=== PATIENT | male | born 1985 | race Caucasian/White ===

== ENCOUNTER 2019-03-22 13:12 | Inpatient (IN) ==
[2019-03-22] MEDS ORDERED: Naloxone 0.4 MG/ML INJ IVP PRN (17:23)
[2019-03-22] MEDS ORDERED: Mag Hydrox/Al Hydrox/Simeth 30 ML UDC PO PRN (17:23)
[2019-03-22 17:44] LABS: Hematocrit 26.5 % (37.5-50.1); Hemoglobin 8.6 g/dL (12.9-16.9)
[2019-03-22] MEDS ORDERED: Dextrose Gel 15 GM/37.5 ML TUBE PO PRN ×2 (17:45)
[2019-03-22] MEDS ORDERED: *HR* Dextrose 50 % in Water (Syg) 50 ML SYRINGE IVP PRN (17:45)
[2019-03-22] MEDS ORDERED: D5% in Water 1,000 ML IVC PRN (17:45)
--- NOTE | 2019-03-22 18:11 | Internal Med History&Physical ---
Date of Encounter: 03/22/19 Time of Encounter: 17:15 Internal Medicine - H&P: HPI Chief complaint: Rectal bleeding Admitted From: Hospital to Hospital Transfer Plans for Post Hospital Care: Home History of present illness: Mr. Hernandez is a 33 year old male with chronic tachycardia presented to ED with complaints of bloody stool. He was evaluated and transferred here for further care. Mr Hernandez started having diarrhea yesterday and is now passing blood in his stool. No fever or chills. No abdominal pain. Has had multiple (over 10) bowel movements though feels it has slowed down at this time. No prior history. No recent travel or eating out. No one else ill. In ED he was found to be anemic (hemoglobin down about 5 grams from 09/10) and tachycardic and was transferred here for further GI eval. At this time he feels OK. He noted diaphoresis and dizziness with episodes but none now. He has hx of chronic tachycardia and states he has had a full work up negative. He takes Lopressor BID which helps. Mother is at bedside and agrees with his history. He also is having a foul odor under his arms with associated rash. This has been present for weeks. Past Med Surg Social Fam HX - Past Medical History Source: patient, obtained from family Medical history: migraine, other Additional medical history: FREQUENT HEARTBURN. sleep apnea - recently had sleep study and fitted for mask. asbergers. Psychiatric history: anxiety, ADHD, depression, other - Past Surgical History Surgical History: tonsillectomy Additional surgical history: left leg fx. - Social History Smoking Status: Current every day smoker Packs per day: <1 Smokeless Tobacco Status: No Alcohol use: occasionally Drug use: marijuana - Family History Mother Hx Family Endocrine Disorder: Yes (dm) Internal Medicine - H&P: Meds clonazePAM [Klonopin] 1 mg PO DAILY 01/16/18 [History] Clomipramine HCl 300 mg PO HS 09/01/18 [History] Gabapentin [Neurontin] 100 mg PO TID 09/01/18 [History] Metoprolol [Lopressor] 100 mg PO BID 09/01/18 [History] Venlafaxine XR (24 HR) [Effexor XR] 37.5 mg PO DAILY 09/01/18 [History] buPROPion HCl [Bupropion HCl Sr] 200 mg PO Q12H 09/01/18 [History] risperiDONE [Risperdal] 2 mg PO HS 09/01/18 [History] risperiDONE [Risperidone] 0.5 mg PO QAM 09/01/18 [History] Allergy/AdvReac Type Severity Reaction Status Date / Time Penicillins [PCN] Allergy Rash Verified 08/19/18 13:02 All Systems PM: A 10-system review of systems was performed and is negative for pertinent findings except as documented above in the HPI. - Constitutional Constitutional: as per HPI, no lethargy, no malaise - EENT Eyes: no dry eye, no loss of vision Ears: no decreased hearing Nose, mouth and throat: no mouth pain, no sinus pain - Cardiovascular Cardiovascular ROS IM: diaphoresis, lightheadedness, no chest pain, no dyspnea, no dyspnea on exertion, no palpitations - Respiratory Respiratory: dyspnea, snoring, other (Recent AMITA diagnosis and needs bipap per note) - Gastrointestinal Gastrointestinal: change in stool character, diarrhea, hematochezia, no abdominal pain, no tenesmus, no vomiting - Genitourinary Genitourinary ROS male: no difficulty urinating, no dysuria, no nocturia - Musculoskeletal Musculoskeletal ROS IM: no arthralgias, no muscle weakness - Integumentary Integumentary IM: erythema, rash - Neurological Neurological ROS: dizziness, no abnormal hearing, no numbness, no weakness - Psychiatric Psychiatric: confusion, no visual hallucinations - Endocrine Endocrine IM: no excessive sweating - Hematologic/Lymphatic Hematologic/Lymphatic: no easy bleeding - Allergic/Immunologic Allergic/Immunologic: no seasonal rhinorrhea - Constitutional Vitals: Temp Pulse Resp BP Pulse Ox 98.2 F 136 19 125/82 99 03/22/19 15:55 03/22/19 16:32 03/22/19 15:55 03/22/19 15:55 03/22/19 16:29 General appearance: Present: A&O X 2, answers questions appropriately Exam: See below - Head Head exam: Present: atraumatic, normocephalic - Eye Eye exam: Present: EOMI, conjuntiva pink - ENT ENT exam: Present: mucous membranes dry, normal exam - Neck Neck exam general surgery: Present: normal inspection, supple - Respiratory Respiratory exam: Present: CTAB. Absent: rales, rhonchi, wheezes - Cardiovascular Cardiovascular exam: Present: tachycardia (Regular.). Absent: systolic murmur - GI/Abdominal GI/Abdominal exam: Present: normal bowel sounds, soft. Absent: mass, tenderness - Extremities Exam Extremities exam: Present: warm. Absent: tenderness - Neurological Exam Neurological exam: Present: alert, no focal deficits - Skin Skin exam: Present: rash (Yeast like rash axilla bilaterally), warm Internal Med - H&P Results - Labs CBC & Chem 7: 03/22/19 17:20 Labs: Short CBC 03/22/19 Range/Units 17:20 Hgb 8.6 L (12.9-16.9) g/dL Hct 26.5 L (37.5-50.1) % - Assessment and Plan (1) Hematochezia Current Visit: Yes Status: Acute Assessment and plan: Pt presented to ED with complaints of red rectal bleeding associated with diarrhea. Has leukocytosis. No abdominal pain. No fever or chills. Will check blood cx. Seems to be improving. GI panel ordered. Cipro/Flagyl started due to colitis on CT GI consult Currently NPO but ice chips and meds. (2) Anemia Current Visit: Yes Status: Acute Assessment and plan: Pt with acute lower GI bleed - H/H significantly decreased from baseline. q 6h H/H ordered - transfusion held unless under 8 or recurrent bleeding Qualifiers: Anemia type: other cause Other causes of anemia: acute posthemorrhagic Qu alified Code(s): D62 - Acute posthemorrhagic anemia (3) Diabetes Current Visit: Yes Status: Suspected Assessment and plan: Pt has elevated glucose on labs and yeast type rash under arms. Takes multiple psych meds increasing his risk (as well as family history) SSI coverage at this time. A1C ordered. Qualifiers: Diabetes mellitus type: type 2 Diabetes mellitus longterm insulin use: without watermaster use Diabetes mellitus complication status: with hyperglycemia Qualified Code(s): E11.65 - Type 2 diabetes mellitus with hyperglycemia (4) Morbid obesity with BMI of 40.0-44.9, adult Current Visit: Yes Status: Chronic Assessment and plan: Chronic issue (5) Acute renal failure Current Visit: Yes Status: Suspected Assessment and plan: Slight increase in creatinine most likely due prerenal status from bleeding. Recheck in AM. Qualifiers: Acute renal failure type: with acute tubular necrosis Qualified Code(s): N17.0 - Acute kidney failure with tubular necrosis (6) Depression Current Visit: Yes Status: Chronic Assessment and plan: Continue home meds. Qualifiers: Depression Type: unspecified Qualified Code(s): F32.9 - Major depressive disorder, single episode, unspecified (7) Yeast dermatitis Current Visit: Yes Status: Acute Assessment and plan: Add topical cream (8) AMITA (obstructive sleep apnea) Current Visit: Yes Status: Chronic Assessment and plan: Bipap ordered as per recent note. (9) Acute hemorrhagic colitis Current Visit: No Status: Acute Assessment and plan: Has leukocytosis. Check blood cx and start abx coverage. - Time Spent With Patient Total time spent is greater than 50% in coordination of care (as documented) at patient's floor/unit and/or counseling patient:
[2019-03-22] MEDS: Acetaminophen 325 MG TABLET PO PRN (19:38)
[2019-03-22] MEDS: Ringers Solution, Lactated 1,000 ML IVC SCH (19:38)
[2019-03-22] MEDS: Insulin LISPRO 300 UNITS/3 ML VIAL SQ SCH ×2 (19:51→23:32)
[2019-03-22] MEDS: Nystatin Cream 15 GM TUBE TP SCH (20:33)
[2019-03-22] MEDS ORDERED: *HR* Metoprolol 5 MG/5 ML VIAL IVP ONE (21:10)
[2019-03-23] MEDS: MetroNIDAZOLE 500 MG/100 ML 500 MG/100 ML BAG IVPB SCH ×3 (00:38→17:07)
[2019-03-23 02:12] LABS: Basophils % 0.2 %; Eosinophils % 0.1 %; Hematocrit 23.8 % (37.5-50.1); Hemoglobin 7.8 g/dL (12.9-16.9); Immature Granulocytes % 0.8 % (0-4); Lymphocytes # 3.3 K/mcL (0.6-4.6); Lymphocytes % 18.4 %; Mean Corpuscular HGB Conc 32.8 g/dL (31.6-35.5); Mean Corpuscular Hemoglobin 30.2 pg (28.0-33.3); Mean Corpuscular Volume 92.2 fL (83.0-100.0); Monocytes # 1.5 K/mcL (0.0-1.3); Monocytes % 8.4 %; Neutrophils # 12.8 K/mcL (1.6-8.9); Platelet Count 287 K/mcL (140-400); Red Blood Count 2.58 M/mcL (4.19-5.50); Red Cell Distribution Width 14.5 % (11.5-14.5); Segmented Neutrophils % 72.1 %; White Blood Count 17.8 K/mcL (4.3-11.1)
[2019-03-23 02:28] LABS: BUN/Creatinine Ratio 26 (6-26); Blood Urea Nitrogen 26 mg/dL (6-20); Calcium 7.6 mg/dL (8.6-10.3); Carbon Dioxide 19 mEq/L (23-29); Chloride 110 mEq/L (98-107); Glucose 127 mg/dL (70-105); Osmolality,Calculated 288 (280-300); Potassium 4.1 mEq/L (3.5-5.1); Sodium 136 mEq/L (136-145); eGFR For African Americans > 60 (> 60); eGFR For Non-African Americans > 60 (> 60)
[2019-03-23] MEDS ORDERED: 0.9 % Sodium Chloride 250 ML ONE (05:27)
[2019-03-23] MEDS: Insulin LISPRO 300 UNITS/3 ML VIAL SQ SCH ×3 (05:50→17:16)
[2019-03-23 06:44] LABS: Estimated Average Glucose 117 mg/dl
--- NOTE | 2019-03-23 07:28 | Internal Med Progress Note ---
<Rolo Colunga F - Last Filed: 03/23/19 15:24> Hospitalist Progress Note - Encounter Date of Encounter: 03/23/19 Time of Encounter: 07:28 - Subjective Interval History: Patient was seen and examined at bedside. This morning patient had a hemoglobin of 7.8 and was transfused 1 unit of packed red blood cells. We will recheck ca lcium. Patient endorsed 1 stool yesterday which appeared to have some blood in it. Endorses some dull lower abdominal pain. Patient's sister was in the room and said that the patient has been more confused for the last 2 days. He is typically AAOx4 however today he is AAOx2-3 oriented to person, place, recent events. Patient himself endorses feeling more confused than usual. Denies any chest pain, shortness of breath, palpitations, nausea, vomiting, fevers, chills. Denies dysuria or polyuria. - Exam Vitals: Temp Pulse Resp BP Pulse Ox 98.9 F 125 16 124/82 97 03/23/19 06:37 03/23/19 06:37 03/23/19 06:37 03/23/19 06:37 03/23/19 06:22 Exam: GEN: Well-appearing, NAD, conversant. HEAD: Normocephalic, atraumatic. EYES: PERRL, EOMI, anicteric. ENT: MMM. oropharynx without erythema or drainage. NECK: Supple. No LAD. No stiffness or restricted ROM. No tracheal deviation. HEART: Regular rate and regular rhythm, normal S1/S2, no m/r/g. LUNGS: CTAB, good air exchange bilaterally. No wheezing, rubs, or rhonchi. ABDO: Soft, mildly tender in the lower quadrant inferior to umbilicus nondistended with active bowel sounds. No rebound, guarding, rigidity. : No suprapubic tenderness or CVA tenderness. BACK: No obvious stepoffs or deformities. EXT: Without cyanosis, clubbing or edema. SKIN: Warm and dry without any rash. NEURO: Grossly nonfocal. Alert and oriented, moving all 4 extremities. CN not formally tested but appear grossly intact. PSYCH: normal affect, no depressed or anxious mood. - Assessment and Plan (1) Hematochezia Current Visit: Yes Status: Acute Assessment and Plan: Presented with bright red rectal bleeding associated with diarrhea. Had leukocytosis, colitis. Plan: - Transfused 1 unit PRBcs today since Hgb 7.8 this morning; repeat was 8.8 - F/u evening CBC, 4am CBC - Pending blood cultures - Continue Cipro/flagyl due to colitis on CT (started 03/22) - Started protonix 40mg IV, Tums PRN for heartburn - GI recs: colonoscopy tomorrow, clear liquid diet, Nulytely (2 tap water enemas if not clear by 6am) - NPO at midnight (2) Acute hemorrhagic colitis Current Visit: No Status: Acute Assessment and Plan: Patient with bright red rectal bleeding and leukocytosis. - Trending CBCs - Pending blood cultures - On cipro/flagyl (3) Anemia Current Visit: Yes Status: Acute Assessment and Plan: Patient has acute GI bleed, anemia likely due to blood loss. - Trending CBC to track Hgb - Tranfuse if Hgb <8 or with recurrent bleeding (4) Diabetes Current Visit: Yes Status: Suspected Assessment and Plan: Patient presented with an elevated blood glucose and yeast type rash under arms. Taking multiple psych meds increased risk of hyperglycemia as well as family history of diabetes. Hgb A1C was 5.7 Plan: - SSI coverage (5) Morbid obesity with BMI of 40.0-44.9, adult Current Visit: Yes Status: Chronic (6) Acute renal failure Current Visit: Yes Status: Suspected Assessment and Plan: Patient presented with slight increased creatinine most likely due to prerenal etiology from bleeding. Plan: - Trend with BMPs - BUN 26 and improving today, Cr 1 normal (7) Depression Current Visit: Yes Status: Chronic Assessment and Plan: Chronic issue. - Continue home medications. (8) Yeast dermatitis Current Visit: Yes Status: Acute Assessment and Plan: Patient noted to have a rash underneath his arms. Plan: - Given nystatin cream (9) Tachycardia Current Visit: Yes Status: Acute Assessment and Plan: Pt has been persistently tachycardic to the 120s to 130s. Has been seen by cardiology. Chart chart review revealed abnormal urine metanephrines and catecholamines, however low suspicion for pheochromocytoma. Cardiology suspects tachycardia due to combination of psych medications. - Patient is currently hemodynamically stable. - We will provide outpatient endocrinology follow-up for further evaluation. (10) AMITA (obstructive sleep apnea) Current Visit: Yes Status: Chronic Assessment and Plan: BiPAP ordered as needed. DVT Prophylaxis: SCDs - Time Spent with Patient Total time spent is greater than 50% in coordination of care (as documented) at patient's floor/unit and/or counseling patient: less than 15 minutes Plan of Care Discussed with: patient Internal Medicine: Result - Labs CBC & Chem 7: 03/23/19 12:04 03/23/19 01:56 Labs: Short CBC 03/22/19 03/23/19 Range/Units 17:20 01:56 WBC 17.8 H (4.3-11.1) K/mcL Hgb 8.6 L 7.8 L (12.9-16.9) g/dL Hct 26.5 L 23.8 L (37.5-50.1) % Plt Count 287 (140-400) K/mcL Neutrophils # 12.8 H (1.6-8.9) K/mcL BMP 03/23/19 01:56 Sodium 136 Potassium 4.1 Chloride 110 H Carbon Dioxide 19 L BUN 26 H Creatinine 1.00 Glucose 127 H Calcium 7.6 L Consult Discharge Plan - Plan Referrals: Tavo Cassidy, WEATHERIZATION ADMINISTRATOR [Primary Care Provider] - 04/07/19 9:00 am <Matt Contreras - Last Filed: 03/23/19 15:45> Hospitalist Progress Note - Encounter Date of Encounter: 03/23/19 - Exam Vitals: Temp Pulse Resp BP Pulse Ox 98.4 F 126 18 119/69 99 03/23/19 11:37 03/23/19 13:05 03/23/19 13:05 03/23/19 11:37 03/23/19 13:05 - Assessment and Plan (1) Hematochezia Current Visit: Yes Status: Acute (2) Anemia Current Visit: Yes Status: Acute (3) Diabetes Current Visit: Yes Status: Suspected (4) Morbid obesity with BMI of 40.0-44.9, adult Current Visit: Yes Status: Chronic (5) Acute renal failure Current Visit: Yes Status: Suspected (6) Depression Current Visit: Yes Status: Chronic (7) Yeast dermatitis Current Visit: Yes Status: Acute (8) AMITA (obstructive sleep apnea) Current Visit: Yes Status: Chronic (9) Acute hemorrhagic colitis Current Visit: No Status: Acute - Time Spent with Patient Total time spent is greater than 50% in coordination of care (as documented) at patient's floor/unit and/or counseling patient: Internal Medicine: Result - Labs CBC & Chem 7: 03/23/19 12:04 03/23/19 01:56 Labs: Short CBC 03/22/19 03/23/19 03/23/19 Range/Units 17:20 01:56 12:04 WBC 17.8 H (4.3-11.1) K/mcL Hgb 8.6 L 7.8 L 8.8 L (12.9-16.9) g/dL Hct 26.5 L 23.8 L 26.5 L (37.5-50.1) % Plt Count 287 (140-400) K/mcL Neutrophils # 12.8 H (1.6-8.9) K/mcL BMP 03/23/19 01:56 Sodium 136 Potassium 4.1 Chloride 110 H Carbon Dioxide 19 L BUN 26 H Creatinine 1.00 Glucose 127 H Calcium 7.6 L - Attending Attestation I examined this patient and my medical decision-making was reviewed with the Resident Physician on 03/23/19. I agree with the documented findings, disposition and treatment plan as described except to the extent set forth below. Mr Hernandez is currently admitted for acute LGI bleed and anemia. He remains moderate to high risk due to potential for worsening clinical status. Mr Hernandez is doing OK. He is still tachycardic. Seems to have less bleeding today he said. To have endoscopy tomorrow. Exam: Alert. NC. Mucus membranes dry. Neck supple. Heart tachy and regular. Lungs negative. Abd soft and nontender. No edema. Moves all extremities. Pulses palpable. Rash unchanged under arms. Plan: Continue cipro, flagyl. Endoscopy tomorrow. Transfuse today. Monitor H/H. <Rolo Colunga F - Last Filed: 03/23/19 15:24> (3) Anemia Qualifiers: Anemia type: other cause Other causes of anemia: acute posthemorrhagic Quali fied Code(s): D62 - Acute posthemorrhagic anemia (4) Diabetes Qualifiers: Diabetes mellitus type: type 2 Diabetes mellitus lobsterman insulin use: without lobsterman use Diabetes mellitus complication status: with hyperglycemia Qualified Code(s): E11.65 - Type 2 diabetes mellitus with hyperglycemia (6) Acute renal failure Qualifiers: Acute renal failure type: with acute tubular necrosis Qualified Code(s): N17.0 - Acute kidney failure with tubular necrosis (7) Depression Qualifiers: Depression Type: unspecified Qualified Code(s): F32.9 - Major depressive disorder, single episode, unspecified <Matt Contreras A - Last Filed: 03/23/19 15:45> (2) Anemia Qualifiers: Anemia type: other cause Other causes of anemia: acute posthemorrhagic Qualified Code(s): D62 - Acute posthemorrhagic anemia (3) Diabetes Qualifiers: Diabetes mellitus type: type 2 Diabetes mellitus senior care insulin use: without lobsterman use Diabetes mellitus complication status: with hyperglycemia Qualified Code(s): E11.65 - Type 2 diabetes mellitus with hyperglycemia (5) Acute renal failure Qualifiers: Acute renal failure type: with acute tubular necrosis Qualified Code(s): N17.0 - Acute kidney failure with tubular necrosis (6) Depression Qualifiers: Depression Type: unspecified Qualified Code(s): F32.9 - Major depressive disorder, single episode, unspecified
[2019-03-23] MEDS: clonazePAM 1 MG TABLET PO SCH ×2 (10:16→20:57)
[2019-03-23] MEDS: Venlafaxine XR (24 HR) 37.5 MG CAP.ER.24H PO SCH (10:16)
[2019-03-23] MEDS: risperiDONE 1 MG TABLET PO SCH ×2 (10:21→20:58)
[2019-03-23] MEDS: Gabapentin 100 MG CAPSULE PO SCH ×2 (10:22→20:57)
[2019-03-23] MEDS: BuPROPion SR (12 HR) 100 MG TABLET PO SCH ×2 (10:23→20:57)
[2019-03-23 10:33] LABS: VBG Ionized Calcium 1.08 mmol/L (1.15-1.35)
--- NOTE | 2019-03-23 11:14 | Gastroenterology Consult Note ---
Date of Encounter: 03/23/19 Time of Encounter: 09:40 - Assessment and plan (1) Acute hemorrhagic colitis Current Visit: No Status: Acute Assessment and plan: CT A/P showed mild wall thickening of the descending colon which could be related to partially contracted colon or wall thickening due to colitis. WBC 17.8 and Hgb 7.8 this AM. Continue Cipro and Flagyl. Plan for colonoscopy tomorrow. Clear liquid diet today, no red or purple. NPO at midnight. If unable tolerate NuLytely please use MiraLAX prep. If not clear by 6 AM, give 2 tap water enemas. (2) Anemia Current Visit: Yes Status: Acute Assessment and plan: Hgb 9.5 on admission and 7.8 this morning. Previously Hgb was 14.8 on 09/01/2018. Patient received one unit PRBC this AM. Continue to monitor CBC and transfuse PRBC as needed. Likely secondary to GI bleeding. Plan for colonoscopy tomorrow. Qualifiers: Anemia type: other cause Other causes of anemia: acute posthemorrhagic Qualified Code(s): D62 - Acute posthemorrhagic anemia - Time Spent With Patient Total time spent is greater than 50% in coordination of care (as documented) at patient's floor/unit and/or counseling patient: GI History of Present Illness - Data of Consult Patient: new to practice Consult date: 03/23/19 Requesting Physician: Matt Contreras DO - Consult Narrative Reason for consult: LGI bleed History of present illness: Mr. Hernandez is a 33 year old male with PMHx of chronic tachycardia, heartburn, sleep apnea who presented to ED with complains of bloody stool. He states symptoms started 3-4 days ago and has been noticing bloody diarrhea. CT A/P showed mild wall thickening of the descending colon which could be related to partially contracted colon or wall thickening due to colitis. Hgb 9.5 on admission and 7.8 this morning. Previously Hgb was 14.8 on 09/01/2018. He admits to mild lower abdominal pain. Patient denies fever, chills, chest pain, shortness of breath, nausea, vomiting, or melena. Patient admits to having "memory problems", and family member at bedside states the patient often gets frustrated when he is unable to remember. He reports feeling more confused today. History verified with family member at bedside. Procedures: None NSAIDs: None Anticoagulation: None Past Med Surg Social Fam HX - Past Medical History Medical history: migraine, other Additional medical history: FREQUENT HEARTBURN. sleep apnea - recently had sleep study and fitted for mask. asbergers. Psychiatric history: anxiety, ADHD, depression, other - Past Surgical History Surgical History: tonsillectomy Additional surgical history: left leg fx. - Social History Smoking Status: Current every day smoker Packs per day: <1 Smokeless Tobacco Status: No Alcohol use: occasionally Drug use: marijuana - Family History Mother Hx Family Endocrine Disorder: Yes (dm) - Constitutional Constitutional: as per HPI - EENT Eyes: as per HPI Ears: Present: as per HPI Nose, mouth and throat: Present: as per HPI - Cardiovascular Cardiovascular ROS: Present: as per HPI - Respiratory Respiratory IM: Present: as per HPI - Genitourinary Genitourinary: Absent: change in color, Urinary frequency - Neurological ROS Neurological GI: Present: as per HPI - Hematologic/Lymphatic Hematologic/Lymphatic pediatric: Present: as per HPI - Musculoskeletal Musculoskeletal ROS GI: Present: as per HPI - Integumentary Integumentary GI: Present: as per HPI - Psychiatric ROS Psychiatric GI: Present: as per HPI - Endocrine Endocrine IM: Present: as per HPI - Constitutional Vitals: Temp Pulse Resp BP Pulse Ox 98.1 F 120 18 123/80 97 03/23/19 10:08 03/23/19 10:08 03/23/19 10:08 03/23/19 10:08 03/23/19 07:31 General appearance: Present: cooperative, A&O X 2 (Unable to name current year), no acute distress - Head Head exam: Present: atraumatic, normocephalic - Eye Eye exam: Present: normal appearance, sclera anicteric - ENT ENT exam: Present: mucous membranes moist - Neck Neck exam general surgery: Present: normal inspection, trachea midline - Respiratory Respiratory exam: Present: CTAB. Absent: rales, rhonchi, wheezes - Cardiovascular Cardiovascular exam: Present: RRR, +S1, +S2 - GI/Abdominal GI/Abdominal exam: Present: soft, tenderness (mild lower abdominal tenderness with patpation), no peritoneal signs. Absent: distended, firm, guarding - Rectal Rectal exam: Present: deferred - Extremities Exam Extremities exam: Present: warm - Neurological Exam Neurological exam: Present: no focal deficits - Psychiatric Psychiatric exam: Present: normal affect, normal mood - Skin Skin exam: Present: dry, intact, normal color, warm Results - Labs CBC & Chem 7: 03/23/19 01:56 03/23/19 01:56 Labs: Last Result 03/23/19 01:56 Calcium 7.6 L Entire Visit 03/23/19 01:56 Hgb 7.8 L Hct 23.8 L Consult Discharge Plan - Plan Referrals: Tavo Cassidy, PIPING SUPERVISOR [Primary Care Provider] - 04/07/19 9:00 am
[2019-03-23 12:36] LABS: Hematocrit 26.5 % (37.5-50.1); Hemoglobin 8.8 g/dL (12.9-16.9)
[2019-03-23] MEDS: Nystatin Cream 15 GM TUBE TP SCH (13:00)
[2019-03-23] MEDS: Ringers Solution, Lactated 1,000 ML IVC SCH (14:27)
[2019-03-23] MEDS ORDERED: Nicotine 2 MG GUM BC PRN (15:28)
[2019-03-23 16:22] LABS: Hematocrit 26.8 % (37.5-50.1); Hemoglobin 8.9 g/dL (12.9-16.9); Mean Corpuscular HGB Conc 33.2 g/dL (31.6-35.5); Mean Corpuscular Hemoglobin 30.4 pg (28.0-33.3); Mean Corpuscular Volume 91.5 fL (83.0-100.0); Mean Platelet Volume 9.7 fL (9.4-12.4); Platelet Count 266 K/mcL (140-400); Red Blood Count 2.93 M/mcL (4.19-5.50); Red Cell Distribution Width 14.3 % (11.5-14.5); White Blood Count 19.4 K/mcL (4.3-11.1)
[2019-03-23] MEDS ORDERED: Nicotine 7 MG PATCH.TD24 TD PRN (16:26)
[2019-03-23] MEDS ORDERED: SODIUM CHLORIDE/NAHCO3/KCL/PEG 4,000 ML SOLN.RECON PO ONE (17:00)
[2019-03-23] MEDS: Pantoprazole 40 MG VIAL IVP SCH (17:07)
--- NOTE | 2019-03-23 18:39 | Anesthesia Evaluation PreOp ---
Date of Encounter: 03/23/19 Time of Encounter: 18:37 - Past History Planned Operation: Colonoscopy Cardiac History: HTN, Hyperlipidemia Pulmonary History: Smoker, Pack/yr (17), AMITA Dx PITTING MACHINE OPERATOR History: Denies Any Significant HX Other Medical History: Other ([place] BMI-41) Anesthesia History: No Prior Anesthetic Complications Alcohol Use: occasionally Drug use: marijuana Medications and Allergies clonazePAM [Klonopin] 1 mg PO BID 01/16/18 [History] Clomipramine HCl 300 mg PO HS 09/01/18 [History] Gabapentin [Neurontin] 100 mg PO BID 09/01/18 [History] Metoprolol [Lopressor] 100 mg PO BID 09/01/18 [History] Venlafaxine XR (24 HR) [Effexor XR] 75 mg PO DAILY 09/01/18 [History] buPROPion HCl [Bupropion HCl Sr] 200 mg PO Q12H 09/01/18 [History] risperiDONE [Risperdal] 2 mg PO BID 09/01/18 [History] hydrOXYzine HCl [Hydroxyzine HCl] 25 mg PO BID PRN 03/23/19 [History] Allergy/AdvReac Type Severity Reaction Status Date / Time Penicillins [PCN] Allergy Rash Verified 08/19/18 13:02 - Meds/Allergy Pre-op Review Medications Reviewed: Yes Allergies Reviewed: Yes Beta Blockers on Current Med List: No Anesthesia Results - Labs 03/23/19 16:07 03/23/19 01:56 - Imaging EKG: report reviewed (Sinus tachycardia Electronically Signed On 03-23-2019 18:16:56 EDT by Colin Hoff) Additional studies: EV/EV echocardiogram w enhance Impressions: LVEF 60%. Normal LV chamber size, wall thickness and function. Normal left ventricular diastolic function. Normal right ventricular structure and function. Right ventricle was not well visualized. Grossly, it is normal in function. Unable to estimate RVSP due to lack of TR jet. No significant valvular dysfunction. Anesthesia Exam Vital Signs/O2 Sat, Most Current Temp Pulse Resp BP Pulse Ox 98.2 F 129 16 106/68 98 03/23/19 15:15 03/23/19 15:15 03/23/19 15:15 03/23/19 15:47 03/23/19 15:15 - HEENT Pupil (Motor): Pupils equal, EOMI Mallampati: III Teeth: Normal Oral Opening: Greater than 3 - PITTING MACHINE OPERATOR LOC: Oriented PITTING MACHINE OPERATOR Motor: Normal RUE, Normal LUE, Normal RLE, Normal LLE, Normal Face PITTING MACHINE OPERATOR Sensory: Normal: RUE, LUE, RLE, LLE, Face - Cardiac Rhythm: Regular Murmur: None JVD: No Carotid Bruit: No - Pulmonary Breath Sounds: bilateral Clear Respiratory Effort: Symmetrical Anesthesia Assess/Plan ASA Score: 3 Level of consciousness: Cooperative Anesthetic Plan: General, MAC Autologous Blood: Yes Monitoring Plan: Standard Monitors Recovery Plan: Other
[2019-03-23 23:43] LABS: Hematocrit 25.5 % (37.5-50.1); Hemoglobin 8.4 g/dL (12.9-16.9)
[2019-03-24] MEDS: Insulin LISPRO 300 UNITS/3 ML VIAL SQ SCH ×4 (00:05→17:20)
[2019-03-24 01:21] LABS: Basophils # 0.1 K/mcL (0.0-0.2); Basophils % 0.3 %; Eosinophils # 0.1 K/mcL (0.0-0.6); Eosinophils % 0.4 %; Hemoglobin 8.3 g/dL (12.9-16.9); Immature Granulocytes % 1.2 % (0-4); Lymphocytes # 3.5 K/mcL (0.6-4.6); Lymphocytes % 22.3 %; Mean Corpuscular HGB Conc 33.2 g/dL (31.6-35.5); Mean Corpuscular Hemoglobin 30.6 pg (28.0-33.3); Mean Corpuscular Volume 92.3 fL (83.0-100.0); Mean Platelet Volume 9.4 fL (9.4-12.4); Monocytes # 1.5 K/mcL (0.0-1.3); Monocytes % 9.2 %; Neutrophils # 10.6 K/mcL (1.6-8.9); Platelet Count 242 K/mcL (140-400); Red Blood Count 2.71 M/mcL (4.19-5.50); Red Cell Distribution Width 14.3 % (11.5-14.5); Segmented Neutrophils % 66.6 %; White Blood Count 15.8 K/mcL (4.3-11.1)
[2019-03-24 01:39] LABS: BUN/Creatinine Ratio 19 (6-26); Blood Urea Nitrogen 20 mg/dL (6-20); Calcium 8.2 mg/dL (8.6-10.3); Carbon Dioxide 21 mEq/L (23-29); Chloride 106 mEq/L (98-107); Glucose 118 mg/dL (70-105); Osmolality,Calculated 282 (280-300); Potassium 3.5 mEq/L (3.5-5.1); Sodium 134 mEq/L (136-145); eGFR For African Americans > 60 (> 60); eGFR For Non-African Americans > 60 (> 60)
[2019-03-24 02:21] LABS: Adenovirus F 40/41 PCR Not detected (Not detect); Astrovirus PCR Not detected (Not detect); C.difficile Toxin A/B Gene PCR Not detected (Not detect); Campylobacter by PCR Not detected (Not detect); Cryptosporidium by PCR Not detected (Not detect); Cyclospora cayetanensis PCR Not detected (Not detect); E. coli O157 by PCR Not detected (Not detect); Entamoeba histolytica PCR Not detected (Not detect); Enteroaggregative E.coli(EAEC) Not detected (Not detect); Enteropathogenic E.coli(EPEC) Not detected (Not detect); Enterotoxigenic E.coli (ETEC) Not detected (Not detect); Giardia lamblia PCR Not detected (Not detect); Norovirus GI/GII PCR Not detected (Not detect); Plesiomonas shigelloides PCR Not detected (Not detect); Rotavirus A PCR Not detected (Not detect); Salmonella PCR Not detected (Not detect); Sapovirus PCR Not detected (Not detect); Shig/EnteroinvasiveE coli EIEC Not detected (Not detect); Shigalike tox-prod E coli STEC Not detected (Not detect); Vibrio PCR Not detected (Not detect); Vibrio cholerae PCR Not detected (Not detect); Yersinia enterocolitica PCR Not detected (Not detect)
[2019-03-24] MEDS: MetroNIDAZOLE 500 MG/100 ML 500 MG/100 ML BAG IVPB SCH ×3 (03:52→18:43)
[2019-03-24] MEDS: Nystatin Cream 15 GM TUBE TP SCH ×3 (03:54→23:44)
[2019-03-24] MEDS: Pantoprazole 40 MG VIAL IVP SCH ×2 (05:41→17:34)
[2019-03-24] MEDS: BuPROPion SR (12 HR) 100 MG TABLET PO SCH ×2 (08:02→22:17)
[2019-03-24] MEDS: Venlafaxine XR (24 HR) 37.5 MG CAP.ER.24H PO SCH (08:02)
[2019-03-24] MEDS: risperiDONE 1 MG TABLET PO SCH ×2 (08:02→22:17)
[2019-03-24] MEDS: clonazePAM 1 MG TABLET PO SCH ×2 (08:02→22:17)
[2019-03-24] MEDS: Gabapentin 100 MG CAPSULE PO SCH ×2 (08:03→22:17)
[2019-03-24] MEDS ORDERED: Propofol 500 MG/50 ML INFUS..BTL ONE (08:26)
--- NOTE | 2019-03-24 09:50 | Internal Med Progress Note ---
<Matt Contreras - Last Filed: 03/24/19 15:01> Hospitalist Progress Note - Encounter Date of Encounter: 03/24/19 - Exam Vitals: Temp Pulse Resp BP Pulse Ox 99.2 F 129 18 112/76 94 03/24/19 14:44 03/24/19 14:44 03/24/19 14:44 03/24/19 14:44 03/24/19 14:44 - Assessment and Plan (1) Hematochezia Current Visit: Yes Status: Acute (2) Anemia Current Visit: Yes Status: Acute (3) Diabetes Current Visit: Yes Status: Suspected (4) Morbid obesity with BMI of 40.0-44.9, adult Current Visit: Yes Status: Chronic (5) Acute renal failure Current Visit: Yes Status: Suspected (6) Depression Current Visit: Yes Status: Chronic (7) Yeast dermatitis Current Visit: Yes Status: Acute (8) AMITA (obstructive sleep apnea) Current Visit: Yes Status: Chronic (9) Acute hemorrhagic colitis Current Visit: No Status: Acute - Time Spent with Patient Total time spent is greater than 50% in coordination of care (as documented) at patient's floor/unit and/or counseling patient: Internal Medicine: Result - Labs CBC & Chem 7: 03/24/19 01:10 03/24/19 01:10 Labs: Short CBC 03/23/19 03/23/19 03/24/19 Range/Units 16:07 23:11 01:10 WBC 19.4 H 15.8 H (4.3-11.1) K/mcL Hgb 8.9 L 8.4 L 8.3 L (12.9-16.9) g/dL Hct 26.8 L 25.5 L 25.0 L (37.5-50.1) % Plt Count 266 242 (140-400) K/mcL Neutrophils # 10.6 H (1.6-8.9) K/mcL BMP 03/24/19 01:10 Sodium 134 L Potassium 3.5 Chloride 106 Carbon Dioxide 21 L BUN 20 Creatinine 1.03 Glucose 118 H Calcium 8.2 L - Impressions Impressions Abdomen/Pelvis CTA 03/24/19 14:00 IMPRESSION: No evidence of acute GI bleeding. Specifically normal appearance of the rectosigmoid colon. Normal appendix. No acute abnormality identified. Slight bibasilar atelectasis. D/ / Fletcher David MD / Fletcher David MD Interpreting Provider: Fletcher David MD Consult Discharge Plan - Plan Referrals: Tavo Cassidy, TUNNEL MAN [Primary Care Provider] - 04/07/19 9:00 am - Attending Attestation I examined this patient and my medical decision-making was reviewed with the Resident Physician on 03/24/19. I agree with the documented findings, disposition and treatment plan as described except to the extent set forth below. Mr Hernandez is currently admitted for acute LGI bleed. He remains moderate to high risk due to potential for worsening clinical status. Mr Hernandez just returned from colonoscopy. Had a lot of blood/clots in colon. No fever or chills. No CP. Exam: Alert. Comfortable. NC. Mucus membranes dry. Neck supple. Heart reg. No wheeze. Abd soft. No edema. Moves all extremities. No rash. Plan: Transfuse more PRBCs. Continue current meds. Bleeding scan. Repeat colonoscopy tomorrow. <Rolo Colunga F - Last Filed: 03/24/19 17:24> Hospitalist Progress Note - Encounter Date of Encounter: 03/24/19 Time of Encounter: 09:49 - Subjective Interval History: Patient was seen and examined at bedside. Patient was not complaining of any issues. Overnight his hemoglobin was stable at 8.8-8.9. He denies any abdominal pain, chest pain, shortness of breath, nausea, vomiting, fevers, chills. Tolerating bowel prep well. - Exam Vitals: Temp Pulse Resp BP Pulse Ox 99.4 F 125 18 141/80 98 03/24/19 09:04 03/24/19 09:04 03/24/19 09:04 03/24/19 09:04 03/24/19 09:04 Exam: GEN: Well-appearing, NAD, conversant. HEAD: Normocephalic, atraumatic. EYES: PERRL, EOMI, anicteric. ENT: MMM. oropharynx without erythema or drainage. NECK: Supple. No LAD. No stiffness or restricted ROM. No tracheal deviation. HEART: Regular rate and regular rhythm, normal S1/S2, no m/r/g. LUNGS: CTAB, good air exchange bilaterally. No wheezing, rubs, or rhonchi. ABDO: Soft, mildly tender in the lower quadrant inferior to umbilicus nondistended with active bowel sounds. No rebound, guarding, rigidity. : No suprapubic tenderness or CVA tenderness. BACK: No obvious stepoffs or deformities. EXT: Without cyanosis, clubbing or edema. SKIN: Warm and dry without any rash. NEURO: Grossly nonfocal. Alert and oriented, moving all 4 extremities. CN not formally tested but appear grossly intact. PSYCH: normal affect, no depressed or anxious mood. - Assessment and Plan (1) Hematochezia Current Visit: Yes Status: Acute Assessment and Plan: Presented with bright red rectal bleeding associated with diarrhea. Had leukocytosis, colitis. Colonoscopy on 03/24 showed blood throughout the colon. Nonbleeding internal hemorrhoids. CTA on 03/24 showed no acute GI bleeding. Plan: - Transfused 2 unit PRBcs today since significant bleeding was noted on colonoscopy; repeat was 8.8; has received 3 units total - Will trend Hgb with CBC - Pending blood cultures - Continue Cipro/flagyl due to colitis on CT (started 03/22), stop tomorrow - Started protonix 40mg IV, Tums PRN for heartburn - GI recs: repeat colonoscopy tomorrow (2) Acute hemorrhagic colitis Current Visit: Yes Status: Acute Assessment and Plan: Patient with bright red rectal bleeding and leukocytosis. - WBC downtrending 17.8-15.8 today - Trending CBCs - Pending blood cultures - On cipro/flagyl, will discontinue tomorrow (3) Anemia Current Visit: Yes Status: Acute Assessment and Plan: Patient has acute GI bleed, anemia likely due to blood loss. - Trending CBC to track Hgb - Tranfuse if Hgb <8 or with recurrent bleeding (4) Diabetes Current Visit: Yes Status: Suspected Assessment and Plan: Patient presented with an elevated blood glucose and yeast type rash under arms. Taking multiple psych meds increased risk of hyperglycemia as well as family history of diabetes. Hgb A1C was 5.7 Plan: - SSI coverage (5) Morbid obesity with BMI of 40.0-44.9, adult Current Visit: Yes Status: Chronic Assessment and Plan: Chronic issue - Nutrition was consulted regarding diet modifications for his diabetes and health maintenance (6) Acute renal failure Current Visit: Yes Status: Resolved Assessment and Plan: Patient presented with slight increased creatinine most likely due to prerenal etiology from bleeding. Plan: - Trend with BMPs - BUNs/creatinine was 20/1.03 (7) Depression Current Visit: Yes Status: Chronic Assessment and Plan: Chronic issue. - Continue home medications. (8) Yeast dermatitis Current Visit: Yes Status: Acute Assessment and Plan: Patient noted to have a rash underneath his arms. Plan: - Given nystatin cream (9) Tachycardia Current Visit: Yes Status: Chronic Assessment and Plan: Pt has been persistently tachycardic to the 120s to 130s. Has been seen by cardiology. Chart chart review revealed abnormal urine metanephrines and catecholamines, however low suspicion for pheochromocytoma. Cardiology suspects tachycardia due to combination of psych medications. - Patient is currently hemodynamically stable. - We will provide outpatient endocrinology follow-up for further evaluation. (10) AMITA (obstructive sleep apnea) Current Visit: Yes Status: Chronic Assessment and Plan: BiPAP ordered as needed. DVT Prophylaxis: SCDs - Time Spent with Patient Total time spent is greater than 50% in coordination of care (as documented) at patient's floor/unit and/or counseling patient: less than 15 minutes Plan of Care Discussed with: family Internal Medicine: Result - Labs CBC & Chem 7: 03/24/19 01:10 03/24/19 01:10 Labs: Short CBC 03/23/19 03/23/19 03/23/19 Range/Units 12:04 16:07 23:11 WBC 19.4 H (4.3-11.1) K/mcL Hgb 8.8 L 8.9 L 8.4 L (12.9-16.9) g/dL Hct 26.5 L 26.8 L 25.5 L (37.5-50.1) % Plt Count 266 (140-400) K/mcL Neutrophils # (1.6-8.9) K/mcL 03/24/19 Range/Units 01:10 WBC 15.8 H (4.3-11.1) K/mcL Hgb 8.3 L (12.9-16.9) g/dL Hct 25.0 L (37.5-50.1) % Plt Count 242 (140-400) K/mcL Neutrophils # 10.6 H (1.6-8.9) K/mcL BMP 03/24/19 01:10 Sodium 134 L Potassium 3.5 Chloride 106 Carbon Dioxide 21 L BUN 20 Creatinine 1.03 Glucose 118 H Calcium 8.2 L <Matt Contreras - Last Filed: 03/24/19 15:01> (2) Anemia Qualifiers: Anemia type: other cause Other causes of anemia: acute posthemorrhagic Qualified Code(s): D62 - Acute posthemorrhagic anemia (3) Diabetes Qualifiers: Diabetes mellitus type: type 2 Diabetes mellitus truck terminal manager insulin use: wit hout usp use Diabetes mellitus complication status: with hyperglycemia Qualified Code(s): E11.65 - Type 2 diabetes mellitus with hyperglycemia (5) Acute renal failure Qualifiers: Acute renal failure type: with acute tubular necrosis Qualified Code(s): N17.0 - Acute kidney failure with tubular necrosis (6) Depression Qualifiers: Depression Type: unspecified Qualified Code(s): F32.9 - Major depressive disorder, single episode, unspecified <Rolo Colunga - Last Filed: 03/24/19 17:24> (3) Anemia Qualifiers: Anemia type: other cause Other causes of anemia: acute posthemorrhagic Qualified Code(s): D62 - Acute posthemorrhagic anemia (4) Diabetes Qualifiers: Diabetes mellitus type: type 2 Diabetes mellitus usp insulin use: without usp use Diabetes mellitus complication status: with hyperglycemia Qualified Code(s): E11.65 - Type 2 diabetes mellitus with hyperglycemia (6) Acute renal failure Qualifiers: Acute renal failure type: with acute tubular necrosis Qualified Code(s): N17.0 - Acute kidney failure with tubular necrosis (7) Depression Qualifiers: Depression Type: unspecified Qualified Code(s): F32.9 - Major depressive disorder, single episode, unspecified
[2019-03-24] MEDS ORDERED: Simethicone 40 MG/0.6 ML MLS IR ONE (10:22)
[2019-03-24] MEDS ORDERED: 0.9 % Sodium Chloride 250 ML ONE ×2 (11:48→15:35)
[2019-03-24] MEDS ORDERED: Isovue-370 500 ML BOTTLE IVP ONE (14:21)
[2019-03-24] MEDS: Calcium Gluconate 1gm/50mL 1 GM/50 ML BAG IVPB SCH ×2 (17:30→18:32)
[2019-03-24] MEDS: Acetaminophen 325 MG TABLET PO PRN (23:42)
[2019-03-25] MEDS: Insulin LISPRO 300 UNITS/3 ML VIAL SQ SCH ×4 (00:28→18:12)
[2019-03-25] MEDS: MetroNIDAZOLE 500 MG/100 ML 500 MG/100 ML BAG IVPB SCH ×3 (00:28→18:14)
[2019-03-25 03:41] LABS: Basophils # 0.1 K/mcL (0.0-0.2); Basophils % 0.5 %; Eosinophils # 0.2 K/mcL (0.0-0.6); Eosinophils % 1.6 %; Hematocrit 29.4 % (37.5-50.1); Immature Granulocytes % 1.8 % (0-4); Lymphocytes # 3.2 K/mcL (0.6-4.6); Lymphocytes % 24.2 %; Mean Corpuscular HGB Conc 33.7 g/dL (31.6-35.5); Mean Corpuscular Hemoglobin 30.4 pg (28.0-33.3); Mean Corpuscular Volume 90.2 fL (83.0-100.0); Mean Platelet Volume 9.7 fL (9.4-12.4); Monocytes # 1.3 K/mcL (0.0-1.3); Monocytes % 10.1 %; Neutrophils # 8.1 K/mcL (1.6-8.9); Nucleated Red Blood Cells 0.2 /100 WBC (0); Platelet Count 236 K/mcL (140-400); Red Blood Count 3.26 M/mcL (4.19-5.50); Red Cell Distribution Width 14.8 % (11.5-14.5); Segmented Neutrophils % 61.8 %; White Blood Count 13.1 K/mcL (4.3-11.1)
[2019-03-25 03:46] LABS: Hemoglobin 9.9 g/dL (12.9-16.9)
[2019-03-25 03:51] LABS: BUN/Creatinine Ratio 9 (6-26); Blood Urea Nitrogen 9 mg/dL (6-20); Calcium 8.1 mg/dL (8.6-10.3); Carbon Dioxide 23 mEq/L (23-29); Chloride 109 mEq/L (98-107); Glucose 90 mg/dL (70-105); Osmolality,Calculated 286 (280-300); Potassium 3.1 mEq/L (3.5-5.1); Sodium 139 mEq/L (136-145); eGFR For African Americans > 60 (> 60); eGFR For Non-African Americans > 60 (> 60)
[2019-03-25] MEDS: Pantoprazole 40 MG VIAL IVP SCH ×2 (05:47→18:12)
[2019-03-25] MEDS ORDERED: Propofol 500 MG/50 ML INFUS..BTL ONE (07:23)
[2019-03-25] MEDS ORDERED: *HR* Propofol 200 MG/20 ML VIAL IVP ONE (07:29)
[2019-03-25] MEDS ORDERED: Lidocaine -MPF 2% 2 ML VIAL ONE (07:32)
[2019-03-25] MEDS ORDERED: Potassium Chloride 40 MEQ, Lidocaine 1% 2 ML in D5% in Water 500 ML IVPB ONE (07:38)
[2019-03-25] MEDS: Ringers Solution, Lactated 1,000 ML IVC SCH (07:54)
[2019-03-25] MEDS ORDERED: *HR* Midazolam HCl 2 MG/2 ML VIAL ONE (07:57)
[2019-03-25] MEDS ORDERED: *HR* Metoprolol 5 MG/5 ML VIAL IVP ONE (08:06)
[2019-03-25] MEDS: risperiDONE 1 MG TABLET PO SCH ×2 (09:40→20:49)
[2019-03-25] MEDS: BuPROPion SR (12 HR) 100 MG TABLET PO SCH ×2 (09:40→20:49)
[2019-03-25] MEDS: clonazePAM 1 MG TABLET PO SCH ×2 (09:40→20:49)
[2019-03-25] MEDS: Gabapentin 100 MG CAPSULE PO SCH ×2 (09:40→20:49)
[2019-03-25] MEDS: Venlafaxine XR (24 HR) 37.5 MG CAP.ER.24H PO SCH (09:40)
[2019-03-25] MEDS: Nystatin Cream 15 GM TUBE TP SCH (09:49)
[2019-03-25] MEDS ORDERED: Nicotine 14 MG PATCH.TD24 TD PRN (14:00)
--- NOTE | 2019-03-25 14:38 | Internal Med Progress Note ---
Hospitalist Progress Note - Encounter Date of Encounter: 03/25/19 Time of Encounter: 12:20 - Subjective Interval History: Mr Hernandez is currently admitted for acute GI bleed. He remains moderate to high risk due to potential for worsening clinical status. Mr Hernandez had repeat colon and EGD today. AVMs found in colon. Also has significant GERD and reflux with esophageal ulcers. Feels OK today. No fever or chills. No further bleeding noted. Mother at bedside. - Exam Vitals: Temp Pulse Resp BP Pulse Ox 97.6 F 109 14 125/76 97 03/25/19 12:48 03/25/19 12:48 03/25/19 12:48 03/25/19 12:48 03/25/19 12:48 Exam: General: Alert and oriented. Comfortable at this time. Skin: Normal color, no rash, H: Normocephalic. EENT: EOMI, Mucus membranes moist. Cardiovascular: Normal S1 & S2, no murmurs Pulse regular. Remains tachycardic. Lungs: Normal breath sounds, no wheezes or crackles. Abdomen: Soft, non-tender, Normal bowel sounds. Extremities: No deformity, no edema or tenderness, Neurological: Normal cognition and motor skills. Pulses: radial pulses normal +2. Rest of the physical exam is non contributory - Assessment and Plan (1) Hematochezia Current Visit: Yes Status: Acute Assessment and Plan: Pt presented to ED with complaints of red rectal bleeding associated with diarrhea. GI panel negative. No colitis seen on colonoscopy. Will complete 5 days of abx due to leukocytosis. (2) Esophageal ulcer without bleeding Current Visit: Yes Status: Acute Assessment and Plan: Pt with esophageal ulcers due to GERD. PPI and Carafate. (3) Anemia Current Visit: Yes Status: Acute Assessment and Plan: Pt with acute lower GI bleed - H/H now stable. Following. (4) Diabetes Current Visit: Yes Status: Suspected Assessment and Plan: HgbA1C less than 6%. Needs weight loss and diet management. (5) Morbid obesity with BMI of 40.0-44.9, adult Current Visit: Yes Status: Chronic Assessment and Plan: Chronic issue (6) Acute renal failure Current Visit: Yes Status: Resolved Assessment and Plan: Resolved. (7) Depression Current Visit: Yes Status: Chronic Assessment and Plan: Continue home meds. (8) Yeast dermatitis Current Visit: Yes Status: Acute Assessment and Plan: Improving with topical treatment. (9) AMITA (obstructive sleep apnea) Current Visit: Yes Status: Chronic Assessment and Plan: Bipap ordered as per recent note. (10) GERD with esophagitis Current Visit: Yes Status: Acute Assessment and Plan: Seen on EGD. PPI and Carafate added. (11) Tachycardia Current Visit: Yes Status: Chronic Assessment and Plan: Pt has hx of tachycardia and has had full work up he says. Restart Lopressor. (12) Tobacco abuse Current Visit: Yes Status: Chronic Assessment and Plan: Stressed need for cessation. Patch ordered. - Time Spent with Patient Total time spent is greater than 50% in coordination of care (as documented) at patient's floor/unit and/or counseling patient: Internal Medicine: Result - Labs CBC & Chem 7: 03/25/19 03:15 03/25/19 03:15 Labs: Short CBC 03/25/19 Range/Units 03:15 WBC 13.1 H (4.3-11.1) K/mcL Hgb 9.9 L D (12.9-16.9) g/dL Hct 29.4 L (37.5-50.1) % Plt Count 236 (140-400) K/mcL Neutrophils # 8.1 (1.6-8.9) K/mcL BMP 03/25/19 03:15 Sodium 139 Potassium 3.1 L Chloride 109 H Carbon Dioxide 23 BUN 9 Creatinine 1.03 Glucose 90 Calcium 8.1 L - Impressions Impressions Abdomen/Pelvis CTA 03/24/19 14:00 IMPRESSION: No evidence of acute GI bleeding. Specifically normal appearance of the rectosigmoid colon. Normal appendix. No acute abnormality identified. Slight bibasilar atelectasis. D/ / Fletcher David MD / Fletcher David MD Interpreting Provider: Fletcher David MD Consult Discharge Plan - Plan Referrals: Tavo Cassidy, FARM IMPLEMENT MECHANIC [Primary Care Provider] - 04/07/19 9:00 am (3) Anemia Qualifiers: Anemia type: other cause Other causes of anemia: acute posthemorrhagic Quali fied Code(s): D62 - Acute posthemorrhagic anemia (4) Diabetes Qualifiers: Diabetes mellitus type: type 2 Diabetes mellitus senior care insulin use: without ferry terminal agent use Diabetes mellitus complication status: with hyperglycemia Qualified Code(s): E11.65 - Type 2 diabetes mellitus with hyperglycemia (6) Acute renal failure Qualifiers: Acute renal failure type: with acute tubular necrosis Qualified Code(s): N17.0 - Acute kidney failure with tubular necrosis (7) Depression Qualifiers: Depression Type: unspecified Qualified Code(s): F32.9 - Major depressive disorder, single episode, unspecified
[2019-03-25] MEDS: Sucralfate 1 GM TABLET PO SCH ×2 (17:00→20:49)
--- NOTE | 2019-03-25 19:23 | Anesthesia Evaluation Post Op ---
Date of Encounter: 03/25/19 Time of Encounter: 09:00 - Vital Signs Vital Signs: Vital Signs Temp Pulse Resp BP Pulse Ox 03/25/19 07:51 97.8 F 126 18 139/92 98 03/25/19 06:47 97.6 F 110 14 131/82 97 03/25/19 02:29 97.7 F 110 14 118/69 98 03/24/19 23:28 97.9 F 119 20 129/84 96 03/24/19 20:15 98 F 121 20 126/81 97 Intake and Output 03/25/19 03/25/19 03/25/19 07:59 15:59 23:59 Intake Total 100 / 500 300 / 500 100 / 500 Output Total 0 / 0 Balance 100 / 500 300 / 500 100 / 500 Intake: IV Fluids 100 / 500 300 / 500 100 / 500 Cipro Premix 400 MG/200 ML 400 200 / 200 mg In 200 ml @ 200 mls/hr IVPB BID [facility] Rx#:[id number] Flagyl Premix 500 MG/100 ML 500 100 / 300 100 / 300 100 / 300 mg In 100 ml @ 100 mls/hr IVPB Q8HR [facility] Rx#:[id number] Oral 0 / 0 Output: Urine 0 / 0 Other: Stool Size Large Stool Consistency loose liquid Stool Color Green # Bowel Movements 1 Blood Glucose* 103 101 - Lungs Lungs: Clear Ascult./Percussion - Airway Airway: Non-obstructed - Cardiovascular Regular Rate, Baseline Rhythm - Mental Status Mental Status: Alert & Oriented, Answers Appropriately - Pain Pain Scale: 0 Pain Scale used: Numeric (1 - 10) - Nausea Vomiting Nausea Vomiting: Not Present - Hydration Hydration: NPO, Has not voided - Discharge PostOp Status: Transfer Patient to floor Anes Supervising Prov Stmt: Pt VSS and has met criteria for discharge to floor. - MD Jhony
[2019-03-25] MEDS: Metoprolol 100 MG TABLET PO SCH (20:49)
[2019-03-25] MEDS: Acetaminophen 325 MG TABLET PO PRN (21:03)
[2019-03-26] MEDS: Artificial Tears SOLN 15 ML BOTTLE BOTH EYES SCH ×3 (00:33→13:02)
[2019-03-26] MEDS: MetroNIDAZOLE 500 MG/100 ML 500 MG/100 ML BAG IVPB SCH ×2 (00:33→09:37)
[2019-03-26] MEDS: Nystatin Cream 15 GM TUBE TP SCH ×2 (04:47→09:52)
[2019-03-26] MEDS: Insulin LISPRO 300 UNITS/3 ML VIAL SQ SCH ×3 (04:48→13:01)
[2019-03-26] MEDS: Pantoprazole 40 MG VIAL IVP SCH (05:14)
[2019-03-26] MEDS: Metoprolol 100 MG TABLET PO SCH (09:36)
[2019-03-26] MEDS: Venlafaxine XR (24 HR) 37.5 MG CAP.ER.24H PO SCH (09:36)
[2019-03-26] MEDS: BuPROPion SR (12 HR) 100 MG TABLET PO SCH (09:36)
[2019-03-26] MEDS: clonazePAM 1 MG TABLET PO SCH (09:36)
[2019-03-26] MEDS: Gabapentin 100 MG CAPSULE PO SCH (09:36)
[2019-03-26] MEDS: risperiDONE 1 MG TABLET PO SCH (09:36)
[2019-03-26] MEDS: Ringers Solution, Lactated 1,000 ML IVC SCH (09:37)
[2019-03-26] MEDS: Sucralfate 1 GM TABLET PO SCH ×2 (09:51→13:03)
[2019-03-26 10:29] LABS: Hematocrit 30.7 % (37.5-50.1); Mean Corpuscular HGB Conc 32.6 g/dL (31.6-35.5); Mean Corpuscular Hemoglobin 29.8 pg (28.0-33.3); Mean Corpuscular Volume 91.4 fL (83.0-100.0); Mean Platelet Volume 9.1 fL (9.4-12.4); Platelet Count 285 K/mcL (140-400); Red Blood Count 3.36 M/mcL (4.19-5.50); Red Cell Distribution Width 14.9 % (11.5-14.5); White Blood Count 11.8 K/mcL (4.3-11.1)
[2019-03-26 10:49] LABS: BUN/Creatinine Ratio 6 (6-26); Blood Urea Nitrogen 6 mg/dL (6-20); Calcium 8.2 mg/dL (8.6-10.3); Carbon Dioxide 23 mEq/L (23-29); Chloride 104 mEq/L (98-107); Glucose 125 mg/dL (70-105); Osmolality,Calculated 287 (280-300); Potassium 3.5 mEq/L (3.5-5.1); Sodium 139 mEq/L (136-145); eGFR For African Americans > 60 (> 60); eGFR For Non-African Americans > 60 (> 60)
--- NOTE | 2019-03-26 11:48 | Discharge Summary ---
- NOTES TO OUTPATIENT PROVIDER Notes to Outpatient Provider: Admitted with acute GI bleed. Found to have AVMs in colon - cauterized. Also esophageal ulcers with severe reflux. Started on PO Carafate and PPI. To follow with GI. Smoking cessation. Orders not resulted at time of discharge: Pending orders 03/22/19 23:00 Culture,Blood [BC] Routine 03/25/19 08:40 Surgical Pathology [PTH] Routine 03/25/19 08:44 Cytology Other [PTH] Routine Date of Encounter: 03/26/19 Time of Encounter: 11:43 - Discharge Diagnosis (1) Hematochezia Priority: Primary Status: Acute (2) AVM (arteriovenous malformation) of colon with hemorrhage Priority: Secondary Status: Acute (3) Esophageal ulcer without bleeding Priority: Secondary Status: Acute (4) Anemia Priority: Secondary Status: Acute Qualifiers: Anemia type: other cause Other causes of anemia: acute posthemorrhagic Qualified Code(s): D62 - Acute posthemorrhagic anemia (5) Diabetes Priority: Secondary Status: Suspected Qualifiers: Diabetes mellitus type: type 2 Diabetes mellitus nursing home insulin use: without buttermaker helper use Diabetes mellitus complication status: with hy perglycemia Qualified Code(s): E11.65 - Type 2 diabetes mellitus with hyperglycemia (6) Morbid obesity with BMI of 40.0-44.9, adult Priority: Secondary Status: Chronic (7) Acute renal failure Priority: Secondary Status: Resolved Qualifiers: Acute renal failure type: with acute tubular necrosis Qualified Code(s): N17.0 - Acute kidney failure with tubular necrosis (8) Depression Priority: Secondary Status: Chronic Qualifiers: Depression Type: unspecified Qualified Code(s): F32.9 - Major depressive disorder, single episode, unspecified (9) Yeast dermatitis Priority: Secondary Status: Acute (10) AMITA (obstructive sleep apnea) Priority: Secondary Status: Chronic (11) GERD with esophagitis Priority: Secondary Status: Acute (12) Tachycardia Priority: Secondary Status: Chronic (13) Tobacco abuse Priority: Secondary Status: Chronic Hospital course: Mr. Hernandez is a 33 year old male presented to ED at [facility] with rectal bleeding. His WBC was elevated and he was subsequently transferred for further care. Mr Hernandez was transferred from [facility] ED and admitted for GI bleed. Due to leukocytosis he was started on IV Cipro/Flagyl (completed 4 days). GI panel negative. He was very tachycardic and says it is "normal" for him. This improved with ultimate resumption of his Lopressor. He was noted to be hyperglycemic with yeast rash under arms. HgbA1C less than 6 but he was given diet at discharge. He received a unit of blood and was seen by GI service. He had colonoscopy but was significant blood. Repeated next day and two AVMs cauterized. EGD showed reflux with esophageal ulcers. He had received total 3 units of blood. His diet was increased and he tolerated it. Today he is eating without difficulty. His H/H is stable. He will be discharged home on PPI and Carafate with smoking cessation. He is to see Dr. Warner next week. - Time Spent with Patient Total time spent providing and/or coordinating discharge services: 38min - Discharge Medications Prescriptions: New Sucralfate [Carafate] 1 gm PO ACHS #1200 ml Nystatin Cream [Mycostatin Cream] 1 appl TP BID tube Nicotine Patch [Nicoderm] 14 mg TD DAILY PRN #30 patch.td24 PRN Reason: Nicotine Cravings Omeprazole [PriLOSEC] 40 mg PO BID #60 cap Continued buPROPion HCl [Bupropion HCl Sr] 200 mg PO Q12H Clomipramine HCl 300 mg PO HS Gabapentin [Neurontin] 100 mg PO BID Metoprolol [Lopressor] 100 mg PO BID risperiDONE [Risperdal] 2 mg PO BID Venlafaxine XR (24 HR) [Effexor Xr] 75 mg PO DAILY hydrOXYzine HCl [Hydroxyzine HCl] 25 mg PO BID PRN PRN Reason: Anxiety clonazePAM [Klonopin] 1 mg PO BID Home Medications: clonazePAM [Klonopin] 1 mg PO BID 01/16/18 [History] Clomipramine HCl 300 mg PO HS 09/01/18 [History] Gabapentin [Neurontin] 100 mg PO BID 09/01/18 [History] Metoprolol [Lopressor] 100 mg PO BID 09/01/18 [History] Venlafaxine XR (24 HR) [Effexor Xr] 75 mg PO DAILY 09/01/18 [History] buPROPion HCl [Bupropion HCl Sr] 200 mg PO Q12H 09/01/18 [History] risperiDONE [Risperdal] 2 mg PO BID 09/01/18 [History] hydrOXYzine HCl [Hydroxyzine HCl] 25 mg PO BID PRN 03/23/19 [History] Nicotine Patch [Nicoderm] 14 mg TD DAILY PRN #30 patch.td24 03/26/19 [Rx] Nystatin Cream [Mycostatin Cream] 1 appl TP BID tube 03/26/19 [Rx] Omeprazole [PriLOSEC] 40 mg PO BID #60 cap 03/26/19 [Rx] Sucralfate [Carafate] 1 gm PO ACHS #1200 ml 03/26/19 [Rx] Allergies/Adverse Reactions: Allergy/AdvReac Type Severity Reaction Status Date / Time Penicillins [PCN] Allergy Rash Verified 08/19/18 13:02 Date of admission: 03/22/19 15:39 Primary care physician: Tavo Cassidy CNP Consults: 03/22/19 17:43 Consult to Physician [CONS] Routine Consulting Provider: Kike Warner Reason for Consult: LGI bleed - notified by [place] ED Call Completed: Yes 03/23/19 11:01 Consult to Nutrition [CONS] Routine Comment: Please provide diet education for pre-diabetic pt Consulting Provider: NUTRITION Reason for Dietary Consult: Diet Education 03/24/19 11:18 Consult to Invasive Line Access Team [CONS] Routine Reason for Consult: poor vascular access, multiple iv infusions at once, needing higher level of care Line Type: EPIV Discharging clinician: Matt Contreras Anticipated date of discharge: 03/26/19 - Constitutional Vitals: Temp Pulse Resp BP Pulse Ox 98.6 F 103 16 151/77 94 03/26/19 07:32 03/26/19 07:32 03/26/19 07:32 03/26/19 07:32 03/26/19 07:32 General appearance: Present: A&O X 3, answers questions appropriately Exam: See below - Head Head exam: Present: normocephalic - Eye Eye exam: Present: EOMI, conjuntiva pink - ENT ENT exam: Present: mucous membranes moist - Neck Neck exam general surgery: Present: supple - Respiratory Respiratory exam: Present: CTAB. Absent: rales, rhonchi, wheezes - Cardiovascular Cardiovascular exam: Present: tachycardia - GI/Abdominal GI/Abdominal exam: Present: soft. Absent: tenderness - Extremities Exam Extremities exam: Present: warm. Absent: tenderness - Neurological Exam Neurological exam: Present: alert, oriented X3 - Skin Skin exam: Present: dry, warm - Patient Status Disposition: Home, Self-Care Condition: Good Functional capacity at discharge: independent ambulation Overall status at discharge: patient is progressing back to baseline - Discharge Instructions Follow Up With: Tavo Cassidy CNP [Primary Care Provider] - 04/07/19 9:00 am - Diet and Activity Activity: resume usual activities as tolerated Diet: diabetic diet
[2019-03-26 11:49] VITALS: BP 124/88
== END 2019-03-26 13:25 | disposition home or self-care (01) | DRG 241 ==
LOC: SUATTDRO 15:39 → 2NNU 15:39 → CDU 03-23 15:25 → 3ANU 03-23 18:23
PROVIDERS: ADMIT Internal Medicine; ATTEND Internal Medicine
PROC: ENDOEBX (2019-03-25 08:00)
PROC: ENDOCCB (2019-03-25 08:00)